=== PATIENT | female | born 2000 | race African-American/Black ===

== ENCOUNTER 2020-08-12 07:14 | Emergency (ER) | payer OTHER ==
[2020-08-12] MEDS ORDERED: HYDROcodone/Acetaminophen 5/325 mg Tablet ONE (08:14)
[2020-08-13 00:33] LABS: SARS-CoV-2 PCR by NAA DETECTED (NotDetected)
== END 2020-08-12 08:08 | disposition home or self-care (01) ==
LOC: CSHERS 07:14
DX: O98.513 Other viral diseases complicating pregnancy, third trimester (principal); U07.1 COVID-19; O99.513 Diseases of the respiratory system complicating pregnancy, third trimester; J39.9 Disease of upper respiratory tract, unspecified; Z3A.30 30 weeks gestation of pregnancy
CPT/HCPCS: 87635; U0003; U0005

== ENCOUNTER 2021-04-10 06:32 | Emergency (ER) | payer OTHER | END 2021-04-10 08:03 | disposition home or self-care (01) | LOC: CSHERS 06:32 | DX: J02.9 Acute pharyngitis, unspecified (principal) | CPT/HCPCS: 87081; 87430; 99283 ==

== ENCOUNTER 2021-04-29 19:41 | Emergency (ER) | payer OTHER ==
[2021-04-29 20:45] LABS: Bilirubin Neg (Negative); Blood, Urine Negative (Negative); Clarity Clear (Clear); Glucose, Urine (Dipstick) Normal (Negative); Ketone, Urine Negative (Negative); Leukocyte 500 (Negative); Nitrite Negative (Negative); Protein, Urine (Dipstick) 15 mg/dl (Neg-Trace)
[2021-04-29 20:48] LABS: #Eosinphils 0.5 10x3/uL (0.0-0.5); #Monocytes 0.6 10x3/uL (0.0-1.1); #Neutrophils 6.4 10x3/uL (1.5-8.4); %Basophils 0.3 % (0.0-2.0); %Eosinophils 4.9 % (0.0-6.0); %Lymphocytes 26.6 % (18.0-47.0); %Monocytes 5.7 % (0.0-10.0); %Neutrophils 62.2 % (40.0-75.0); Hemoglobin 10.9 g/dL (12.0-15.5); Mean Corpuscular HGB CONC 30.4 g/dL (32.0-36.0); Mean Corpuscular Hemoglobin 20.3 pg (27.0-33.0); Mean Corpuscular Volume 66.7 fl (81.6-98.3); Mean Platelet Volume 9.4 fl (7.4-10.4); Platelet Count 478 10x3/uL (150-450); RBC Distribution Width 19.7 % (11.5-14.5); Red Blood Cell (RBC) Count 5.38 10x6/uL (3.90-5.03); White Blood Cell (WBC) Count 10.3 10x3/uL (3.5-10.5)
[2021-04-29 20:51] LABS: ALT (SGPT) 13 U/L (8-55); AST (SGOT) 14 U/L (5-34); Albumin 4.1 g/dL (3.5-5.0); Alkaline Phosphatase 110 U/L (40-110); Anion Gap 12 mmol/L (10-20); BUN (Urea Nitrogen) 9 mg/dL (7.0-18.7); Bilirubin, Total 0.2 mg/dL (0.2-1.2); Calc. Creatinine Clearance 0 mL/min (70-130); Calcium 9.2 mg/dL (7.8-10.44); Carbon Dioxide 21 mmol/L (22-29); Chloride 108 mmol/L (98-107); Globulin 4.3 g/dL (2.4-3.5); Glucose 93 mg/dL (70-105); Potassium 3.7 mmol/L (3.5-5.1); Protein, Total 8.4 g/dL (6.0-8.3); Sodium 137 mmol/L (136-145)
[2021-04-29 20:53] LABS: BHCG - Serum POSITIVE (NEGATIVE); Pregs Control Background? CLEAR/WHITE (CLR/WHITE); Pregs Control Bar Appear? YES (CONTROL BAR)
[2021-04-29 20:54] LABS: RBC/HPF 0-3 HPF (0-3)
[2021-04-29 20:55] LABS: Bacteria/HPF 4+ HPF (None Seen); Mucous/LPF 2+ LPF (<2+)
[2021-04-29 21:07] LABS: Microcytosis SLIGHT = 6-15 cells (100X) (0-5/hpf); Platelet Morphology Comment Appears Adequate
[2021-04-29 21:13] LABS: Thyroid Stimulating Hormone 1.2728 uIU/mL (0.35-4.94)
== END 2021-04-29 23:20 | disposition home or self-care (01) ==
LOC: CSHERS 19:41
DX: O23.41 Unspecified infection of urinary tract in pregnancy, first trimester (principal); Z3A.01 Less than 8 weeks gestation of pregnancy
CPT/HCPCS: 80053; 81003; 81015; 84443; 84702; 84703; 85025; 94760

== ENCOUNTER 2021-11-13 18:58 | Emergency (ER) | payer OTHER | END 2021-11-13 20:07 | disposition home or self-care (01) | LOC: CSHERS 18:58 | DX: O92.29 Other disorders of breast associated with pregnancy and the puerperium (principal); Z3A.32 32 weeks gestation of pregnancy | CPT/HCPCS: 93005 ==

== ENCOUNTER 2021-12-19 10:43 | Outpatient (CLI) | payer OTHER ==
[2021-12-19 13:02] LABS: Hemoglobin 9.6 g/dL (12.0-15.5); Mean Corpuscular HGB CONC 31.7 g/dL (32.0-36.0); Mean Corpuscular Hemoglobin 21.2 pg (27.0-33.0); Mean Corpuscular Volume 66.9 fl (81.6-98.3); Mean Platelet Volume 10.3 fl (7.4-10.4); Platelet Count 269 10x3/uL (150-450); RBC Distribution Width 17.2 % (11.5-14.5); Red Blood Cell (RBC) Count 4.53 10x6/uL (3.90-5.03); White Blood Cell (WBC) Count 6.8 10x3/uL (3.5-10.5)
[2021-12-19 13:30] LABS: Hep B Surf Ag Non-Reactive S/CO (NonReactive); Syphilis Antibody Nonreactive (Nonreactive); Syphilis Antibody Index 0.09 S/CO (<1.00 Non-Reactive)
[2021-12-19 13:35] LABS: HBSAg Index 0.19 S/CO (0-0.99)
== END 2021-12-19 10:44 | disposition home or self-care (01) ==
LOC: CSHLAB 10:43
PROVIDERS: ATTEND Family Medicine
DX: Z01.812 Encounter for preprocedural laboratory examination (principal); Z20.822 Contact with and (suspected) exposure to COVID-19
CPT/HCPCS: 85027; 86780; 86900; 86901; 87340; U0003; U0005

== ENCOUNTER 2021-12-23 09:38 | Inpatient (IN) | payer OTHER ==
[2021-12-19 13:02] LABS: Hemoglobin 9.6 g/dL (12.0-15.5); Mean Corpuscular HGB CONC 31.7 g/dL (32.0-36.0); Mean Corpuscular Hemoglobin 21.2 pg (27.0-33.0); Mean Corpuscular Volume 66.9 fl (81.6-98.3); Mean Platelet Volume 10.3 fl (7.4-10.4); Platelet Count 269 10x3/uL (150-450); RBC Distribution Width 17.2 % (11.5-14.5); Red Blood Cell (RBC) Count 4.53 10x6/uL (3.90-5.03); White Blood Cell (WBC) Count 6.8 10x3/uL (3.5-10.5)
[2021-12-19 13:30] LABS: Hep B Surf Ag Non-Reactive S/CO (NonReactive); Syphilis Antibody Nonreactive (Nonreactive); Syphilis Antibody Index 0.09 S/CO (<1.00 Non-Reactive)
[2021-12-19 13:35] LABS: HBSAg Index 0.19 S/CO (0-0.99)
[2021-12-23] MEDS ORDERED: Lactated Ringer's 1,000 ML IV SCH (10:05)
[2021-12-23] MEDS ORDERED: Famotidine/PF 20 mg/2ml Vial SLOW IVP PRN (10:05)
[2021-12-23] MEDS ORDERED: Promethazine HCl 25 MG/ML VIAL IM PRN ×3 (10:05→16:30)
[2021-12-23] MEDS ORDERED: hydrALAZINE 20 MG/ML VIAL SLOW IVP PRN ×2 (10:05→16:30)
[2021-12-23] MEDS ORDERED: Bicitra 30 ML UDCUP PO PRN (10:05)
[2021-12-23] MEDS ORDERED: Ondansetron PF 4 MG/2 ML Vial IVP PRN ×3 (10:05→16:30)
[2021-12-23 10:07] VITALS: BMI 53.1
[2021-12-23] MEDS ORDERED: diphenhydrAMINE 50 MG/ML VIAL IVP PRN (10:59)
[2021-12-23] MEDS ORDERED: Naloxone HCl 0.4 mg/ml Vial IVP PRN ×2 (10:59)
[2021-12-23] MEDS ORDERED: Naloxone HCl 0.4 mg/ml Vial IV PRN (10:59)
[2021-12-23] MEDS ORDERED: Fentanyl 100 MCG/2 ML VIAL SLOW IVP PRN (10:59)
[2021-12-23] MEDS ORDERED: Meperidine HCl/PF 25 MG/ML VIAL SLOW IVP PRN (10:59)
[2021-12-23] MEDS ORDERED: Promethazine HCl 25 MG SUPP PR PRN (10:59)
[2021-12-23] MEDS ORDERED: Ketorolac Tromethamine 30 MG/ML VIAL IVP PRN (10:59)
[2021-12-23] MEDS ORDERED: Ondansetron HCl/PF 4 MG/2 ML Vial IVP PRN (10:59)
[2021-12-23] MEDS ORDERED: Moisturizing Cream (Eucerin) 113 GM JAR TOP PRN (10:59)
[2021-12-23] MEDS ORDERED: HYDROmorphone 2 MG/ML VIAL SLOW IVP PRN (10:59)
[2021-12-23] MEDS ORDERED: CEFAZOLIN 3 GM, Admixture Fee 1 EACH in Sodium Chloride 0.9% 100 ML IVPB SCH (11:00)
[2021-12-23] MEDS ORDERED: Ketorolac Tromethamine 30 MG/ML VIAL IVP SCH (11:00)
[2021-12-23] MEDS ORDERED: Communication Order-Pharmacy FS SCH (11:00)
[2021-12-23] MEDS ORDERED: Ondansetron PF 4 MG/2 ML Vial ONE (11:07)
[2021-12-23] MEDS ORDERED: Ketorolac Tromethamine 30 MG/ML VIAL ONE (11:07)
[2021-12-23] MEDS ORDERED: Phenylephrine 10 MG/ML VIAL ONE (11:07)
[2021-12-23] MEDS ORDERED: Morphine PF 10 MG/10 ML VIAL ONE (11:07)
[2021-12-23] MEDS ORDERED: Fentanyl 100 MCG/2 ML VIAL ONE (11:07)
[2021-12-23] MEDS ORDERED: Oxytocin 10 UNITS/ML VIAL ONE (11:08)
[2021-12-23] MEDS ORDERED: diphenhydrAMINE 50 MG/ML VIAL ONE (13:28)
[2021-12-23] MEDS ORDERED: NS w/ Oxytocin 30 units 500 ML ONE (14:41)
[2021-12-23] MEDS ORDERED: Lidocaine 1% (PF) 30 ML VIAL ONE (15:28)
[2021-12-23] MEDS ORDERED: Bisacodyl 10 MG SUPP PR PRN (16:30)
[2021-12-23] MEDS ORDERED: NS w/ Oxytocin 30 units 500 ML IV SCH (16:30)
[2021-12-23] MEDS ORDERED: diphenhydrAMINE 25 MG CAP PO PRN (16:30)
[2021-12-23] MEDS ORDERED: Lanolin Ointment 7 GM TUBE TOP PRN (16:30)
[2021-12-23] MEDS ORDERED: Meperidine HCl/PF 25 MG/ML VIAL IM PRN (16:30)
[2021-12-23] MEDS ORDERED: Boostrix 0.5 ML (Tdap) VIAL IM ONE (16:30)
[2021-12-23] MEDS: Docusate 100 MG CAP PO SCH (22:15)
[2021-12-23] MEDS: Ferrous Sulfate 325 MG TAB PO SCH (22:15)
[2021-12-23] MEDS: Ketorolac Tromethamine 30 MG/ML VIAL IVP SCH (22:24)
[2021-12-24] MEDS: Ketorolac Tromethamine 30 MG/ML VIAL IVP SCH ×2 (00:12→05:45)
[2021-12-24 05:19] LABS: Hemoglobin 9.1 g/dL (12.0-15.5); Mean Corpuscular HGB CONC 31.2 g/dL (32.0-36.0); Mean Corpuscular Hemoglobin 20.7 pg (27.0-33.0); Mean Corpuscular Volume 66.5 fl (81.6-98.3); Mean Platelet Volume 10.8 fl (7.4-10.4); Platelet Count 251 10x3/uL (150-450); RBC Distribution Width 17.6 % (11.5-14.5); Red Blood Cell (RBC) Count 4.39 10x6/uL (3.90-5.03); White Blood Cell (WBC) Count 9.4 10x3/uL (3.5-10.5)
[2021-12-24] MEDS: Prenatal Vitamin 1 TAB PO SCH (07:52)
[2021-12-24] MEDS: Docusate 100 MG CAP PO SCH ×2 (07:53→21:01)
[2021-12-24] MEDS: HYDROcodone/Acetaminophen 5/325 mg Tablet PO PRN ×4 (07:53→20:16)
[2021-12-24] MEDS: Ferrous Sulfate 325 MG TAB PO SCH ×2 (07:53→21:01)
[2021-12-24] MEDS: Ibuprofen 800 MG TAB PO SCH ×2 (13:26→21:01)
[2021-12-24] MEDS: Lactated Ringer's 1,000 ML IV SCH ×2 (15:05→17:06)
[2021-12-24] MEDS: Simethicone Chewable 80 MG TAB PO PRN (16:13)
[2021-12-25] MEDS: HYDROcodone/Acetaminophen 5/325 mg Tablet PO PRN ×5 (00:16→20:55)
[2021-12-25] MEDS: Ibuprofen 800 MG TAB PO SCH ×3 (05:40→20:54)
[2021-12-25] MEDS: Prenatal Vitamin 1 TAB PO SCH (07:18)
[2021-12-25] MEDS: Simethicone Chewable 80 MG TAB PO PRN ×3 (07:18→16:56)
[2021-12-25] MEDS: Ferrous Sulfate 325 MG TAB PO SCH ×2 (07:18→20:54)
[2021-12-25] MEDS: Docusate 100 MG CAP PO SCH ×2 (07:18→20:54)
[2021-12-25] MEDS ORDERED: Famotidine 20 MG TAB PO SCH (16:00)
[2021-12-26] MEDS: Simethicone Chewable 80 MG TAB PO PRN (05:34)
[2021-12-26] MEDS: HYDROcodone/Acetaminophen 5/325 mg Tablet PO PRN (05:35)
[2021-12-26] MEDS: Ibuprofen 800 MG TAB PO SCH (05:35)
[2021-12-26] MEDS: Docusate 100 MG CAP PO SCH (07:38)
[2021-12-26] MEDS: Ferrous Sulfate 325 MG TAB PO SCH (07:38)
[2021-12-26] MEDS: Prenatal Vitamin 1 TAB PO SCH (07:38)
[2021-12-26 08:10] VITALS: BP 124/57; TEMP 97.8
== END 2021-12-26 11:58 | disposition home or self-care (01) | DRG 788 ==
LOC: CSHLD 09:38 → CSHPP 17:35
PROVIDERS: ADMIT Family Medicine; ATTEND Family Medicine
PROC: 10D00Z1 Extraction of Products of Conception, Low, Open Approach (ICD-10-PCS; principal; 2021-12-23)
DX: O34.211 Maternal care for low transverse scar from previous cesarean delivery (principal); Z20.822 Contact with and (suspected) exposure to COVID-19; Z3A.39 39 weeks gestation of pregnancy; Z37.0 Single live birth
CPT/HCPCS: 51702; 85027; 86780; 86850; 86900; 86901; 87340; J0690; J1200; J1885; J2274; J2370; J2405; J2590; J3010; J3490; J7120; S0028; U0003; U0005

== ENCOUNTER 2023-04-27 14:26 | Outpatient (CLI) | payer OTHER | END 2023-04-27 14:27 | disposition home or self-care (01) | LOC: CSHULT 14:26 | PROVIDERS: ATTEND Nurse Practitioner Women's Health | DX: O09.892 Supervision of other high risk pregnancies, second trimester (principal); Z3A.28 28 weeks gestation of pregnancy | CPT/HCPCS: 76805 ==

== ENCOUNTER 2023-07-06 02:52 | Inpatient (IN) | payer OTHER ==
[2023-07-06] MEDS ORDERED: CEFAZOLIN 3 GM in Sodium Chloride 0.9% 100 ML IVPB SCH (03:05)
[2023-07-06] MEDS ORDERED: Ondansetron PF 4 MG/2 ML Vial IVP PRN ×4 (03:05→11:14)
[2023-07-06] MEDS ORDERED: Bicitra 30 ML UDCUP PO PRN (03:05)
[2023-07-06] MEDS ORDERED: hydrALAZINE 20 MG/ML VIAL SLOW IVP PRN ×2 (03:05→11:14)
[2023-07-06] MEDS ORDERED: Diphenoxylate HCl/Atropine Tablet PO PRN (03:05)
[2023-07-06] MEDS ORDERED: Oxytocin 30 units/NS 500 ML 500 ML IV SCH (03:05)
[2023-07-06] MEDS ORDERED: Methylergonovine 0.2 MG/ML VIAL IM PRN (03:05)
[2023-07-06] MEDS ORDERED: Tranexamic Acid 1,000 MG/10 ML VIAL IVP PRN (03:05)
[2023-07-06] MEDS ORDERED: Promethazine HCl 25 MG/ML VIAL IM PRN ×2 (03:05→09:06)
[2023-07-06] MEDS ORDERED: Misoprostol 200 MCG TAB PR PRN (03:05)
[2023-07-06] MEDS ORDERED: Carboprost 250 MCG/ML AMP IM PRN (03:05)
[2023-07-06 03:42] VITALS: BMI 58.9
[2023-07-06] MEDS: Lactated Ringer's 1,000 ML IV SCH (04:15)
[2023-07-06 04:42] LABS: Hematocrit 33.2 % (34.9-44.5); Hemoglobin 10.4 g/dL (12.0-15.5); Mean Corpuscular HGB CONC 31.3 g/dL (32.0-36.0); Mean Corpuscular Hemoglobin 20.8 pg (27.0-33.0); Mean Corpuscular Volume 66.4 fl (81.6-98.3); Mean Platelet Volume 9.8 fl (7.4-10.4); Platelet Count 306 10x3/uL (150-450); RBC Distribution Width 20.6 % (11.5-14.5); White Blood Cell (WBC) Count 11.2 10x3/uL (3.5-10.5)
[2023-07-06 05:05] LABS: HBSAg Index 0.27 S/CO (0-0.99); Hep B Surf Ag - L&D Non-Reactive S/CO (NonReactive)
[2023-07-06 05:06] LABS: Syphilis Antibody Nonreactive (Nonreactive); Syphilis Antibody Index 0.24 S/CO (<1.00 Non-Reactive)
[2023-07-06] MEDS: CEFAZOLIN 2 GM, CEFAZOLIN 1 GM in Sodium Chloride 0.9% 100 ML IVPB SCH (06:47)
[2023-07-06] MEDS: Famotidine/PF 20 mg/2ml Vial SLOW IVP PRN (07:02)
[2023-07-06] MEDS ORDERED: Naloxone HCl 0.4 mg/ml Vial IVP PRN ×2 (09:06)
[2023-07-06] MEDS ORDERED: fentaNYL 50 mcg/mL 1 mL Vial SLOW IVP PRN (09:06)
[2023-07-06] MEDS ORDERED: Moisturizing Cream (Eucerin) 113 GM JAR TOP PRN (09:06)
[2023-07-06] MEDS ORDERED: Promethazine HCl 25 MG SUPP PR PRN (09:06)
[2023-07-06] MEDS ORDERED: Meperidine HCl/PF 25 MG (1 mL) VIAL SLOW IVP PRN (09:06)
[2023-07-06] MEDS ORDERED: Morphine 4 MG/ML VIAL SLOW IVP PRN (09:06)
[2023-07-06] MEDS ORDERED: Communication Order-Pharmacy FS SCH (09:15)
[2023-07-06] MEDS ORDERED: Lanolin Ointment 7 GM TUBE TOP PRN (11:14)
[2023-07-06] MEDS ORDERED: Ketorolac Tromethamine 30 MG (1 mL) VIAL IVP PRN (14:00)
[2023-07-06] MEDS: diphenhydrAMINE 50 MG/ML VIAL IVP PRN (15:11)
[2023-07-06] MEDS: Ketorolac Tromethamine 30 MG (1 mL) VIAL IVP SCH (15:11)
[2023-07-06] MEDS: Oxytocin 10 UNITS/ML VIAL ONE ×3 (16:00→16:01)
[2023-07-06] MEDS: Ketorolac Tromethamine 30 MG (1 mL) VIAL ONE (16:00)
[2023-07-06] MEDS: Dexmedetomidine 200 MCG/2 ML VIAL ONE (16:00)
[2023-07-06] MEDS: Dexamethasone 4 mg/ml Vial ONE (16:00)
[2023-07-06] MEDS: Phenylephrine 40 MG/NS 250 ML 250 ML ONE (16:00)
[2023-07-06] MEDS: Morphine PF 10 MG/10 ML VIAL ONE (16:00)
[2023-07-06] MEDS: Ondansetron PF 4 MG/2 ML Vial ONE (16:00)
[2023-07-06] MEDS: Ferrous Sulfate 325 MG TAB PO SCH (16:01)
[2023-07-06] MEDS: Phytonadione Neonatal 1 MG/0.5 ML AMP ONE (16:01)
[2023-07-06] MEDS: Erythromycin Base 0.5% Oint 1 GM TUBE ONE (16:01)
[2023-07-06] MEDS: Boostrix 0.5 ML (Tdap) VIAL (>/=7 yrs of age) IM ONE (16:01)
[2023-07-06] MEDS: Docusate 100 MG CAP PO SCH ×2 (16:01→20:56)
[2023-07-06] MEDS: Prenatal Vitamin 1 TAB PO SCH (16:01)
[2023-07-06] MEDS: diphenhydrAMINE 25 MG CAP PO PRN (23:09)
[2023-07-06] MEDS: HYDROcodone/Acetaminophen 5/325 mg Tablet PO PRN (23:14)
[2023-07-07] MEDS: Ferrous Sulfate 325 MG TAB PO SCH (02:59)
[2023-07-07] MEDS: HYDROcodone/Acetaminophen 5/325 mg Tablet PO PRN (03:40)
[2023-07-07 05:09] LABS: Hematocrit 26.6 % (34.9-44.5); Hemoglobin 8.4 g/dL (12.0-15.5); Mean Corpuscular HGB CONC 31.6 g/dL (32.0-36.0); Mean Corpuscular Hemoglobin 20.8 pg (27.0-33.0); Mean Platelet Volume 10.4 fl (7.4-10.4); Platelet Count 283 10x3/uL (150-450); Red Blood Cell (RBC) Count 4.03 10x6/uL (3.90-5.03); White Blood Cell (WBC) Count 12.8 10x3/uL (3.5-10.5)
[2023-07-07] MEDS: Prenatal Vitamin 1 TAB PO SCH (08:22)
[2023-07-07] MEDS: Naloxone HCl 0.4 mg/ml Vial IV PRN (08:41)
[2023-07-07] MEDS: Ibuprofen 800 MG TAB PO SCH (15:25)
[2023-07-07] MEDS: Simethicone Chewable 80 MG TAB PO PRN (15:26)
[2023-07-08] MEDS: Milk Of Magnesia 30 ML UDCUP PO SCH (20:40)
[2023-07-09 08:02] VITALS: BP 123/55; TEMP 98.5
[2023-07-09] MEDS: Bisacodyl 10 MG SUPP PR PRN (11:16)
== END 2023-07-09 18:30 | disposition home or self-care (01) | DRG 788 ==
LOC: CSHLD 02:52 → CSHPP 11:08
PROVIDERS: ADMIT Family Medicine; ATTEND Family Medicine
PROC: 10D00Z1 Extraction of Products of Conception, Low, Open Approach (ICD-10-PCS; principal; 2023-07-06)
DX: O34.211 Maternal care for low transverse scar from previous cesarean delivery (principal); Z3A.39 39 weeks gestation of pregnancy; Z37.0 Single live birth; E66.01 Morbid (severe) obesity due to excess calories; O99.214 Obesity complicating childbirth; D64.9 Anemia, unspecified; O99.02 Anemia complicating childbirth; O99.824 Streptococcus B carrier state complicating childbirth
CPT/HCPCS: 36415; 51702; 85027; 86780; 86850; 86900; 86901; 87340; J0690; J1100; J1200; J1885; J2274; J2310; J2405; J2590; J3490; J7120; S0028

== ENCOUNTER 2024-05-26 13:26 | Outpatient (CLI) | payer OTHER | END 2024-05-26 13:27 | disposition home or self-care (01) | LOC: CSHDTY/OP 13:26 | PROVIDERS: ATTEND Surgery | DX: E66.01 Morbid (severe) obesity due to excess calories (principal) | CPT/HCPCS: 97802 ==